=== PATIENT | male | born 1980 | race American Indian/Alaskan Native ===

== ENCOUNTER 2017-05-05 19:10 | Emergency (ER) | payer OTHER, BC ==
[2017-05-05 20:57] VITALS: BP 136/92
[2017-05-05] MEDS ORDERED: FLEXERIL PO ONE (22:38)
[2017-05-05] MEDS ORDERED: MOTRIN PO ONE (22:38)
[2017-05-05] MEDS ORDERED: NORCO 5/325 PO ONE (22:38)
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
== END 2017-05-06 00:45 | disposition home or self-care (01) ==
LOC: ED 19:10
DX: M54.2 Cervicalgia (principal); M54.5 Low back pain; Z87.891 Personal history of nicotine dependence; V87.7XXA Person injured in collision between other specified motor vehicles (traffic), initial encounter; Y93.89 Activity, other specified; Y99.9 Unspecified external cause status; Y92.410 Unspecified street and highway as the place of occurrence of the external cause
CPT/HCPCS: 72040; 72070